=== PATIENT | male | born 1955 | race Hispanic/Latino ===

== ENCOUNTER 2017-08-17 21:11 | Emergency (ER) | payer SELFPAY ==
[2017-08-18] MEDS ORDERED: Naloxone HCl 0.4 mg/ml Vial ONE (01:42)
[2017-08-18] MEDS ORDERED: Naloxone HCl 2 mg/2 ml Syringe ONE (01:42)
== END 2017-08-17 23:10 | disposition home or self-care (01) ==
LOC: ERS 21:11
DX: H11.32 Conjunctival hemorrhage, left eye (principal); E11.9 Type 2 diabetes mellitus without complications; I10 Essential (primary) hypertension; E78.5 Hyperlipidemia, unspecified; Z87.891 Personal history of nicotine dependence
CPT/HCPCS: 99282

== ENCOUNTER 2019-01-09 08:43 | Outpatient (CLI) | payer BC ==
--- NOTE | 2019-01-09 09:15 | RAD ---
2 views right hip: 01/09/2019 COMPARISON: None HISTORY: Posterior hip pain, arthritis FINDINGS: There is mild superior joint space narrowing. No displaced fracture or evidence of dislocat ion. IMPRESSION: No acute osseous abnormality.
--- NOTE | 2019-01-09 09:17 | RAD ---
Left knee 4 views: 01/09/2019 COMPARISON: None HISTORY: Knee pain FINDINGS: Mild medial and lateral compartment narrowing. Mild osteophyte formation of the medial and lateral tibial plateaus and the lateral femoral condyle. There is prominent patellofemoral joint space narrowing with posterior patellar osteophyte formation. No knee joint effusion, fracture, or ev idence of dislocation. IMPRESSION: Multicompartment degenerative joint disease, most prominent in the patellofemoral region.
--- NOTE | 2019-01-09 09:17 | RAD ---
EXAM: 2 views of the left hip HISTORY: Left hip pain COMPARISON: None FINDINGS: 2 views of the left hip shows no evidence of acute fracture or dislocation. No degenerative changes are seen. No soft tissue swelling is present. IMPRESSION: No evidence of acute osseous abnormality.
== END 2019-01-09 08:44 | disposition home or self-care (01) ==
LOC: BICRAD 08:43
PROVIDERS: ATTEND Family Medicine
DX: M25.551 Pain in right hip (principal); M25.552 Pain in left hip; M25.562 Pain in left knee; M17.12 Unilateral primary osteoarthritis, left knee

== ENCOUNTER 2022-07-09 09:16 | Outpatient (CLI) | payer OTHER | END 2022-07-09 09:17 | disposition home or self-care (01) | LOC: BICRAD 09:16 | PROVIDERS: ATTEND Neurological Surgery | DX: M48.56XA Collapsed vertebra, not elsewhere classified, lumbar region, initial encounter for fracture (principal) | CPT/HCPCS: 72100 ==